=== PATIENT | female | born 1995 | race Caucasian/White ===

== ENCOUNTER 2020-06-06 13:49 | Emergency (ER) | payer OTHER ==
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
--- NOTE | 2020-06-06 15:18 | CT ---
[id number] CT/CT Cervical Spine WO IV Exam: CT Cervical Spine WO IV Clinical Data: NECK PAIN COMPARISON: NO PREVIOUS SIMILAR EXAM IS AVAILABLE FINDINGS: No fracture or subluxation is seen Disc space height is preserved There is straightening of the normal lordosis likely related to muscle spasm The prevertebral soft tissues are unremarkable IMPRESSION: NEGATIVE PLAIN CT CERVICAL SPINE Shen Brooke MD 06/06/20 [id number] Thank you for allowing us to participate in the care of your patient.
== END 2020-06-06 15:35 | disposition home or self-care (01) ==
LOC: KA.ED 13:49
DX: S16.1XXA Strain of muscle, fascia and tendon at neck level, initial encounter (principal); Z88.0 Allergy status to penicillin; V49.9XXA Car occupant (driver) (passenger) injured in unspecified traffic accident, initial encounter
CPT/HCPCS: 36415; 72125; 84703; 99283; 99284-25